=== PATIENT | female | born 2000 | race African-American/Black ===

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

== ENCOUNTER 2021-05-21 00:30 | Emergency (ER) | payer BC ==
[~2021-05-21] VITALS: Ht 167.6 cm; Wt 145.2 kg
[~2021-05-21 00:30] MED LIST: NORCO 5-325 TA1 EAC1 PO
[2021-05-21] MEDS ORDERED: AMBIEN 5 MG TABL5 M1 PO (00:45)
[2021-05-21] MEDS ORDERED: EFFEXOR XR150 MG PO (00:45)
[2021-05-21 01:13] LABS: ABSOLUTE NEUTROPHILS 6.4 thou/uL (1.4-8.2); BASOPHILS 0.5 % (0.0-2.0); EOSINOPHILS 0.1 % (0.0-3.0); HEMATOCRIT 38.4 % (37.0-47.0); HEMOGLOBIN 12.7 gm/dL (12.0-15.0); MCH 29.6 pg (26.0-34.0); MCHC 32.9 g/dL (28.0-37.0); MCV 89.8 fL (80.0-100.0); MONOCYTES 6.2 % (1.0-8.0); PLATELET COUNT 383 thou/uL (150-400); POLYS 61.2 % (36.0-66.0); RBC 4.28 mil/uL (4.20-5.00); RDW 13.8 % (10.5-14.5); WBC 10.4 thou/uL (4.0-11.0)
[2021-05-21 01:19] LABS: ANION GAP 12 mmol/L (7-16); BUN 8 mg/dL (7-18); CALCIUM 8.8 mg/dL (8.5-10.1); CHLORIDE 99 mmol/L (98-107); CO2 26 mmol/L (21-32); CREATININE 0.8 mg/dL (0.6-1.0); GLUCOSE 100 mg/dL (74-106); POTASSIUM 3.4 mmol/L (3.5-5.1); SODIUM 137 mmol/L (136-145)
[2021-05-21 01:29] LABS: ALBUMIN 3.5 g/dL (3.4-5.0); SGOT 14 U/L (15-37); SGPT 16 U/L (30-65); TOTAL BILIRUBIN 0.4 mg/dL (0.2-1.0); TOTAL PROTEIN 8.4 g/dL (6.4-8.2); TROPONIN-I <0.06 ng/mL (<0.06)
[2021-05-21] MEDS ORDERED: PEPCID20 MG PO (02:23)
[2021-05-21 02:40] VITALS: BP 161/104
--- NOTE | 2021-05-23 07:10 | EKG ---
[address] [place] [address] ELECTROCARDIOGRAM REPORT Name: NACHO SAINZ [facility]Jamal[facility]al[facility] [id number] Admission: 05/21/21 Attend Phys: Discharge: 05/21/21 Date of : 2 Report #: [id number] [facility] ED Test Date: 2021-05-21 Test Time: 00:45:09 Pat Name: NACHO SAINZ Department: Room: Gender: F Fishing Manager: YSABEL TERAN : 2000 Requested By: Derrick Crockett Order Number: [id number] MD: Gary Galindo Measurements Intervals [place] Rate: 116 P: 47 MS: 125 QRS: 38 QRSD: 77 T: 157 QT: 304 QTc: 423 Interpretive Statements Sinus tachycardia Atrial premature complex Nonspecific repol abnormality, lateral leads No previous ECG available for comparison Electronically Signed On 05-23-2021 7:10:34 CDT by Gary Galindo [email or web address] <ELECTRONICALLY SIGNED> By: Gary Galindo MD, [facility] 05/23/21 0710 0045 0045 Gary Galindo MD, FACC /EPI
== END 2021-05-21 03:10 | disposition home or self-care (01) ==
LOC: ER 00:30
PROVIDERS: Emergency Medicine
DX: R07.9 Chest pain, unspecified (principal); E66.9 Obesity, unspecified; Z79.899 Other long term (current) drug therapy; Z68.43 Body mass index [BMI] 50.0-59.9, adult